=== PATIENT | female | born 1975 | race African-American/Black ===

== ENCOUNTER 2017-02-23 08:07 | Emergency (ER) | payer OTHER ==
[~2017-02-23 08:07] MED LIST: AZITHROMYCIN250 MG PO; BACTRIM DS TABL1 TA1 PO; BENTYL20 MG PO; DIFLUCAN PO; FLEXERIL10 M1 PO; FLEXERIL10 MG PO; KEFLEX500 MG PO; LORTAB 5/500 TA1 TA1 PO; MOBIC PO; NAPROSYN500 MG PO; NAPROXEN PO; PREDNISONE PO; PREDNISONE1 MG PO; PREDNISONE10 MG/DOSE PO; PYRIDIUM PO; RYBIX ODT50 MG PO; TRIAMCINOLONE A15 G2 TOP; ULTRAM PO; VIBRAMYCIN100 M1 PO; VOLTAREN75 MG PO; ZOVIRAX200 MG PO
== END 2017-02-23 10:40 | disposition home or self-care (01) ==
LOC: CED 08:07
DX: S46.912A Strain of unspecified muscle, fascia and tendon at shoulder and upper arm level, left arm, initial encounter (principal); R05 Cough; F17.200 Nicotine dependence, unspecified, uncomplicated; X58.XXXA Exposure to other specified factors, initial encounter; Y92.009 Unspecified place in unspecified non-institutional (private) residence as the place of occurrence of the external cause
CPT/HCPCS: 99283